=== PATIENT | male | born 1955 | race Caucasian/White ===

== ENCOUNTER 2023-09-14 04:06 | Emergency (ER) | payer OTHER ==
[2023-09-14 04:09] VITALS: TEMP 97.7
[2023-09-14] MEDS ORDERED: DUONEB 0.5-3 MG/3 ml Neb IH ONE (05:02)
[2023-09-14] MEDS: DUONEB 0.5-3 MG/3 ml Neb IH ONE (05:05)
[2023-09-14 05:13] LABS: Absolute Neutrophil Ct (ANC) 6.16 x10^3/uL (1.4-6.9); BASOPHIL % 0.5 % (0.0-0.4); Basophil (Absolute #) 0.04 x10^3/uL (0-0.4); Eosinophil % 1.2 % (0.00-5.0); Hemoglobin 13.2 g/dL (12.5-18.0); IMMATURE GRAN # 0.05 x10^3u/L (0.00-0.03); IMMATURE GRAN % 0.6 % (0.00-0.4); Lymphocyte (Absolute #) 1.55 x10^3/uL (1.0-4.6); Mean Cell Volume 91.1 fL (78-100); Mean Corpuscular Hemoglobin 30.1 pg (26-32); Mean Platelet Volume 10.1 fL (7.5-11.0); Monocyte (Absolute #) 0.71 x10^3/uL (0.0-1.3); Monocytes % 8.2 % (0.0-12.0); Neutrophil % 71.5 % (36.0-66.0); Platelet Count 303 x10^3/uL (150-450); Red Blood Count 4.39 x10^6/uL (4.1-5.6); Red Cell Distribution Width 12.3 % (11.5-14.0); White Blood Count 8.6 x10^3/uL (4.0-10.5)
--- NOTE | 2023-09-14 05:17 | ERPHSYRPT ---
- History of Present Illness Time Seen by Provider: 09/14/23 04:16 Source: patient, family Exam Limitations: no limitations Patient Subjective Stated Complaint: short of breath, headache, body aches, fatigue, cough, abd pain Triage Nursing Assessment: pt ambulated into ER without diff, at bedside. Pt alert and oriented x4, cooperative. Pt c/o shortness of breath which occured around 3am this morning when he got up for work. Pt has been fighting a cold for the last week. Lung marin clear ant bilat, lung marin coarse with rhonchi noted posteriorly on expiration. Pt c/o nausea but no vomiting. Pt has some mid sternal chest pain and abd pain which pt feels is from coughing. Heart tones reg. Abd soft with active bs x4 quad, tender on palpation. Pt c/o achines and fatigue all over and has a headache. Pt has a dry, non prod cough. Pt had several home meds on his list but informed me he isn't taking any of those anymore except for atorvastatin because he can't afford to have them filled. Physician History: 67 years old male presented to the ER with complains of cough congestion with progressive worsening for the last 2 weeks. Patient reported it started as a head cold with gradually going down in the lungs. Patient reports coughing up yellow sputum moderate in amount with subjective feeling of fever and chills. He has been using [id number] medications with no significant relief. Patient woke up this morning to go to work and was having hard time breathing and could not stop coughing. Denies any chest pain but soreness because of repeated coughing. Also reports aches and pains all over with a headache, some abdominal discomfort, body aches. Denies any recent known sick contact. Allergies/Adverse Reactions: cefaclor [From Ceclor] Allergy (Severe, Verified 09/14/23 04:22) Shortness of Breath fluoxetine HCl [From Prozac] Allergy (Mild, Verified 09/14/23 04:22) aggitated Home Medications: Atorvastatin Calcium 40 mg PO HS 09/14/23 [History] Hx Tetanus, Diphtheria Vaccination/Date Given: (unknown) Hx Influenza Vaccination/Date Given: No Hx Pneumococcal Vaccination/Date Given: No Immunizations Up to Date: No Travel Risk - International Travel Have you traveled outside of the country in past 3 weeks: No - Emerging Infectious Disease Are you exhibiting symptoms associated with any current EIDs: Yes Symptoms: Abdominal Pain, Cough: New Onset, Headaches/Body Aches/, Shortness of Breath - Review of Systems Constitutional: Fever, Chills, Fatigue, Weakness Eyes: No Symptoms Ears, Nose, & Throat: Nose Congestion, Throat Swelling Respiratory: Cough, Dyspnea, Wheezing Cardiac: Chest Pain Abdominal/Gastrointestinal: No Symptoms Genitourinary Symptoms: No Symptoms Musculoskeletal: Arthralgias, Myalgias Skin: No Symptoms Neurological: Headache Psychological: No Symptoms Endocrine: No Symptoms Hematologic/Lymphatic: No Symptoms Immunological/Allergic: No Symptoms - Past Medical History Pertinent Past Medical History: Yes Neurological History: Migraines, Peripheral Neuropathy, Seizures ENT History: No Pertinent History Cardiac History: High Cholesterol, Hypertension Respiratory History: Bronchitis, Sleep Apnea Endocrine Medical History: No Pertinent History Musculoskeletal History: Arthritis GI Medical History: No Pertinent History History: No Pertinent History Psycho-Social History: Depression Male Reproductive Disorders: No Pertinent History Other Medical History: syncopal episode - Past Surgical History Past Surgical History: Yes Neuro Surgical History: No Pertinent History Cardiac: No Pertinent History Respiratory: No Pertinent History Gastrointestinal: No Pertinent History Genitourinary: No Pertinent History Musculoskeletal: Orthopedic Surgery Male Surgical History: No Pertinent History Other Surgical History: SINUS SURGERY - Social History Smoking Status: Former smoker How long have you smoked: 25 years Exposure to second hand smoke: Yes Drug Use: none Patient Lives Alone: No - Nursing Vital Signs Nursing Vital Signs: Initial Vital Signs Blood Pressure 158/72 09/14/23 04:06 O2 Sat by Pulse Oximetry 98 09/14/23 04:06 Pain Scale Pain Intensity 5 - Physical Exam General Appearance: no apparent distress, alert Eye Exam: PERRL/EOMI Ears, Nose, Throat Exam: hearing grossly normal, nasal congestion, pharyngeal erythema Neck Exam: normal inspection, non-tender, supple, full range of motion Respiratory Exam: diminished breath sounds, rhonchi, wheezing, No respiratory distress Cardiovascular/Chest Exam: normal heart sounds, regular rate/rhythm Abdominal/Gastrointestinal Exam: soft, normal bowel sounds, No tenderness Extremity Exam: non-tender, normal range of motion Neurologic Exam: alert, oriented x 3, cooperative, stitchdown toe former II-XII nml as tested Skin Exam: normal color SpO2 Interpretation: normal SpO2: 96 O2 Delivery: Room Air - Course EKG Interpreted by Me: RATE ([id number]), Sinus Rhythm, NORMAL AXIS, NORMAL INTERVALS, NORMAL QRS Ordered Tests: Active Orders 24 hr Category Date Time Status CHEST 1 VIEW (PORTABLE) Stat Exams 09/14/23 05:08 Taken CHEST WITH CONTRAST [CT] Stat Exams 09/14/23 06:42 Ordered BLOOD CULTURE Stat Lab 09/14/23 06:04 Received CBC W DIFF Stat Lab 09/14/23 04:45 Completed CMP Stat Lab 09/14/23 04:45 Completed D-DIMER QUANTITATIVE Stat Lab 09/14/23 06:09 Completed Lactic Acid Stat Lab 09/14/23 05:42 Completed NT PRO BNPII Stat Lab 09/14/23 04:45 Completed TROPONIN Q4H Lab 09/14/23 04:45 Completed TROPONIN Q4H Lab 09/14/23 09:00 Ordered TROPONIN Q4H Lab 09/14/23 13:00 Ordered UA W/RFX UR CULTURE Stat Lab 09/14/23 04:52 Ordered Respiratory Therapy Assessment DAILY RT 09/14/23 05:03 Active Medication Summary Discontinued Medications Generic Name Dose Route Start Last Admin Trade Name Freq PRN Reason Stop Dose Admin Acetaminophen 975 mg 09/14/23 05:49 09/14/23 05:55 Acetaminophen 325 Mg Tablet PO 09/14/23 05:50 975 mg STAT STA Administration Acetaminophen Confirm 09/14/23 05:53 Acetaminophen 325 Mg Tablet Administered 09/14/23 05:54 Dose 975 mg .ROUTE .STK-MED ONE Albuterol/Ipratropium 3 ml 09/14/23 04:52 09/14/23 05:05 Ipratropium/Albuterol Sulfate 3 Ml Ampul.Neb IH 09/14/23 04:53 3 ml STAT ONE Administration Albuterol/Ipratropium Confirm 09/14/23 05:02 Ipratropium/Albuterol Sulfate 3 Ml Ampul.Neb Administered 09/14/23 05:03 Dose 3 ml IH .STK-MED ONE Levofloxacin 500 mg 09/14/23 06:26 Levofloxacin 250 Mg Tab PO 09/14/23 06:27 STAT ONE Lab/Rad Data: Laboratory Result Diagrams 09/14/23 04:45 09/14/23 04:45 Laboratory Results 09/14/23 09/14/23 09/14/23 Range/Units 06:09 05:42 05:09 WBC (4.0-10.5) x10^3/uL RBC (4.1-5.6) x10^6/uL Hgb (12.5-18.0) g/dL Hct (42-50) % MCV (78-100) fL MCH (26-32) pg MCHC (32-36) g/dL RDW (11.5-14.0) % Plt Count (150-450) x10^3/uL MPV (7.5-11.0) fL Gran % (36.0-66.0) % Immature Gran % (Auto) (0.00-0.4) % Nucleat RBC Rel Count (0.00-0.1) % Eos # (Auto) (0-0.5) x10^3/uL Immature Gran # (Auto) (0.00-0.03) x10^3u/L Absolute Lymphs (auto) (1.0-4.6) x10^3/uL Absolute Monos (auto) (0.0-1.3) x10^3/uL Absolute Nucleated RBC (0.00-0.01) x10^3u/L Lymphocytes % (24.0-44.0) % Monocytes % (0.0-12.0) % Eosinophils % (0.00-5.0) % Basophils % (0.0-0.4) % Absolute Granulocytes (1.4-6.9) x10^3/uL Basophils # (0-0.4) x10^3/uL D-Dimer 0.87 H* (0.0-0.50) mg/L Sodium (135-145) mmol/L Potassium (3.5-5.1) mmol/L Chloride (98-107) mmol/L Carbon Dioxide (22-30) mmol/L Anion Gap (5-15) MEQ/L BUN (9-20) mg/dL Creatinine (0.66-1.25) mg/dL Estimated GFR ML/MIN Glucose (74-106) mg/dL Lactic Acid 1.1 (0.4-2.0) Calcium (8.4-10.2) mg/dL Total Bilirubin (0.2-1.3) mg/dL AST (17-59) U/L ALT (0-50) U/L Alkaline Phosphatase (38-126) U/L Troponin I (0.000-0.034) ng/mL NT-Pro-B Natriuret Pep (<300) pg/mL Serum Total Protein (6.3-8.2) g/dL Albumin (3.5-5.0) g/dL Influenza Type A Ag NEGATIVE (NEGATIVE) Influenza Type B Ag NEGATIVE (NEGATIVE) RSV (PCR) NEGATIVE (NEGATIVE) SARS-CoV-2 (PCR) NEGATIVE (NEGATIVE) 09/14/23 09/14/23 09/14/23 Range/Units 04:45 04:45 04:45 WBC 8.6 (4.0-10.5) x10^3/uL RBC 4.39 (4.1-5.6) x10^6/uL Hgb 13.2 (12.5-18.0) g/dL Hct 40.0 L (42-50) % MCV 91.1 (78-100) fL MCH 30.1 (26-32) pg MCHC 33.0 (32-36) g/dL RDW 12.3 (11.5-14.0) % Plt Count 303 (150-450) x10^3/uL MPV 10.1 (7.5-11.0) fL Gran % 71.5 H (36.0-66.0) % Immature Gran % (Auto) 0.6 H (0.00-0.4) % Nucleat RBC Rel Count 0.0 (0.00-0.1) % Eos # (Auto) 0.10 (0-0.5) x10^3/uL Immature Gran # (Auto) 0.05 H (0.00-0.03) x10^3u/L Absolute Lymphs (auto) 1.55 (1.0-4.6) x10^3/uL Absolute Monos (auto) 0.71 (0.0-1.3) x10^3/uL Absolute Nucleated RBC 0.00 (0.00-0.01) x10^3u/L Lymphocytes % 18.0 L (24.0-44.0) % Monocytes % 8.2 (0.0-12.0) % Eosinophils % 1.2 (0.00-5.0) % Basophils % 0.5 (0.0-0.4) % Absolute Granulocytes 6.16 (1.4-6.9) x10^3/uL Basophils # 0.04 (0-0.4) x10^3/uL D-Dimer (0.0-0.50) mg/L Sodium 139 (135-145) mmol/L Potassium 3.7 (3.5-5.1) mmol/L Chloride 109 H (98-107) mmol/L Carbon Dioxide 19 L (22-30) mmol/L Anion Gap 13.5 (5-15) MEQ/L BUN 14 (9-20) mg/dL Creatinine 1.04 (0.66-1.25) mg/dL Estimated GFR 79.2 ML/MIN Glucose 114 H (74-106) mg/dL Lactic Acid (0.4-2.0) Calcium 9.4 (8.4-10.2) mg/dL Total Bilirubin 0.20 (0.2-1.3) mg/dL AST 49 (17-59) U/L ALT 56 H (0-50) U/L Alkaline Phosphatase 78 (38-126) U/L Troponin I < 0.012 (0.000-0.034) ng/mL NT-Pro-B Natriuret Pep 115 (<300) pg/mL Serum Total Protein 6.8 (6.3-8.2) g/dL Albumin 3.6 (3.5-5.0) g/dL Influenza Type A Ag (NEGATIVE) Influenza Type B Ag (NEGATIVE) RSV (PCR) (NEGATIVE) SARS-CoV-2 (PCR) (NEGATIVE) - Progress Progress: improved Air Movement: good Progress Note: 09/14/23 06:41 feeling better after neb, x rays consistent with airspace disease, started on levaquin, D-dimers are elevated, CTA is pending, care is transferred to Dr. Baldwin at shift change. Blood Culture(s) Obtained: Yes Antibiotics given: Yes Counseled pt/family regarding: lab results, diagnosis, need for follow-up, rad results Medical Desision Making - Independent Historian Additional History obtained from: Spouse - Diagnostic Testing Diagnostic test were ordered, analyzed, and reviewed by me: Yes Radiological Interpretation: Interpreted by me, Reviewed by me - Risk of complications The pt has a mod risk of morbidity or mortality based on: Need for prescription drug management - Departure Clinical Impression: Pneumonia Condition: Stable Critical Care Time: No Referrals: JARED HAMMOND, TORI [Primary Care Provider] - Follow up with PCP 1 day Instructions: Pneumonia, Adult (DC) Additional Instructions: Take neb treatments every 6 hourly. Tylenol as needed for fever greater than 100.4. Follow-up with primary care for reevaluation in 1 to 2 days. Return to ER for worsening cough/difficulty breathing or if having chest pain palpitations etc. Prescriptions: Albuterol/Ipratropium 3ml Neb* [DUONEB 0.5-3 MG/3 ml Neb] 3 ml IH Q4-6HPRN PRN 10 Days #60 amp PRN Reason: Shortness Of Breath/Wheezing Levofloxacin [Levaquin 500 MG Tablet] 500 mg PO DAILY #10 tablet
[2023-09-14 05:37] LABS: ALBUMIN 3.6 g/dL (3.5-5.0); ANION GAP 13.5 MEQ/L (5-15); BILIRUBIN,TOTAL 0.2 mg/dL (0.2-1.3); Calcium 9.4 mg/dL (8.4-10.2); Creatinine 1 1.04 mg/dL (0.66-1.25); EST GLOMERULAR FILTRATION RATE 79.2 ML/MIN; Potassium 3.7 mmol/L (3.5-5.1); Total Protein 6.8 g/dL (6.3-8.2)
[2023-09-14] MEDS ORDERED: TYLENOL 325 MG ONE (05:53)
[2023-09-14] MEDS: TYLENOL 325 MG PO STA (05:55)
[2023-09-14 05:56] LABS: INFLUENZA A NEGATIVE (NEGATIVE); INFLUENZA B NEGATIVE (NEGATIVE); RESPIRATORY SYNCTIAL VIRUS NEGATIVE (NEGATIVE); SARS-CoV-2 Xpert Express NEGATIVE (NEGATIVE)
[2023-09-14] MEDS ORDERED: LEVOFLOXACIN 750MG/150ML D5W 750 MG/150 ML BAG IV ONE (06:50)
[2023-09-14] MEDS: LEVOFLOXACIN 750MG/150ML D5W 750 MG/150 ML BAG IV STA (06:53)
[2023-09-14] MEDS: Levofloxacin 250MG Tablet PO ONE (07:52)
[2023-09-14 08:40] LABS: Appearance Clear (Clear); Bilirubin Negative (Negative); Blood Trace (Negative); Glucose, Urine Negative (Negative); Ketones 15 (Negative); Leukocyte Esterase Negative (Negative); Nitrite Negative (Negative); Ph 6.5 (4.6-8.0); Protein,Urine Dip Negative (Negative); Specific Gravity >=1.030 (1.005-1.030); Urobilinogen 0.2 mg/dL (0.2)
[2023-09-14 08:45] LABS: Bacteria Rare /HPF (None Seen); Epithelial Cells Few /HPF (None Seen); RBC 0-2 /HPF (0-5); WBC 0-2 /HPF (0-5)
[2023-09-14 08:46] LABS: ADD URINE CULTURE? NO (NO)
--- NOTE | 2023-09-14 09:16 | XRAY ---
Indication: Short of breath. Cough. Pulmonary embolus. Multiple contiguous axial images obtained through the chest using 80 cc Isovue 370 contrast. Comparison: None Good opacification of the pulmonary arteries to include the lobar and segmental branches. No pulmonary embolus. Heart not enlarged. Aorta mildly arteriosclerotic without aneurysm/dissection. Small subcarinal lymph nodes. No pathologic adenopathy. Lungs demonstrates patchy left lower lobe airspace disease without effusion. Remaining lungs demonstrates minimal bilateral dependent atelectasis. Bony thorax intact with osteopenia and mild degenerative changes throughout the spine. Limited upper abdomen demonstrates 3 cm splenic cyst. Impression: 1. Negative pulmonary 2. Left lower lobe pneumonia. 3. Chronic findings arteriosclerotic disease, splenic cyst, and chronic bony findings.
--- NOTE | 2023-09-14 09:25 | XRAY ---
Indication: Short of breath. Comparison: March 01, 2015 Portable chest again hyperinflated with new mild left base infiltrate/atelectasis. Remaining heart and right lung unremarkable. Bony thorax intact again with osteopenia and degenerative changes.
[2023-09-14 09:41] VITALS: BP 166/79; PULSE 76; RESP 19; O2SAT 96
== END 2023-09-14 09:41 | disposition home or self-care (01) ==
LOC: ED 04:06
DX: J18.9 Pneumonia, unspecified organism (principal); R05.2 Subacute cough; M79.10 Myalgia, unspecified site; R51.9 Headache, unspecified; E78.5 Hyperlipidemia, unspecified; I10 Essential (primary) hypertension; Z79.899 Other long term (current) drug therapy; Z20.828 Contact with and (suspected) exposure to other viral communicable diseases
CPT/HCPCS: 0241U; 36000; 36415; 71045; 71260; 80053; 81001; 83605; 83880; 84484; 85025; 85379; 87040; 93005; 93041; 94640; 94760; 99284; J1956; A9270-GY

== ENCOUNTER 2023-09-27 16:03 | Emergency (ER) | payer OTHER ==
[2023-09-27 16:17] VITALS: TEMP 97.2
--- NOTE | 2023-09-27 16:57 | ERPHSYRPT ---
- History of Present Illness Time Seen by Provider: 09/27/23 16:30 Source: patient Exam Limitations: no limitations Patient Subjective Stated Complaint: C/O headache and numbness of all fingers that began around 3pm today. Denies falls or head injuries. Triage Nursing Assessment: Patient ambulated back to ER. He is alert and oriented. Skin tone normal. No SOB. No cough. CHANTEL ABRAHAM. Physician History: This is a 67-year-old white male patient of nurse practitioner Ismael who was seen in our emergency department 2 to 3 weeks ago secondary to clinical impression of pneumonia. Patient seems to be improving. Today he woke up and was having some flulike symptoms and therefore he took a new medication which was called "Daugherty's complete" which is a liquid preparation containing menthol, camphor, guaifenesin and acetaminophen. He was told by an individual that this medication works to help in cough cold and flulike symptom relief. He took that medication approximately 3 PM and within an hour he started having numbness in his hands which have now completely resolved, headache and just overall body aches. He has never had this medication before. Patient does have a history of hyperlipidemia, hypertension, diabetes, recurrent bronchitis, migraine headaches and peripheral neuropathy. Patient has not had a fever. He denies chest pain. He denies shortness of breath. Timing/Duration: today Severity: mild (Moderate) Associated Symptoms: weakness (Body aches), other (Headache), No nausea, No vomiting, No abdominal pain, No shortness of breath, No chest pain Allergies/Adverse Reactions: cefaclor [From Ceclor] Allergy (Severe, Verified 09/27/23 16:11) Shortness of Breath fluoxetine HCl [From Prozac] Allergy (Mild, Verified 09/27/23 16:11) aggitated Home Medications: Atorvastatin Calcium 40 mg PO HS 09/14/23 [History] Amitriptyline HCl 10 mg [Elavil 10 mg] 10 mg PO TID 09/27/23 [History] Gabapentin [Neurontin ] 300 mg PO TID 09/27/23 [History] Lisinopril 20 mg [Zestril 20 MG] 20 mg PO DAILY 09/27/23 [History] Metformin HCl 500 mg [Glucophage 500 MG] 500 mg PO BID 09/27/23 [History] Hx Tetanus, Diphtheria Vaccination/Date Given: Yes Hx Influenza Vaccination/Date Given: No Hx Pneumococcal Vaccination/Date Given: No Immunizations Up to Date: Yes Travel Risk - International Travel Have you traveled outside of the country in past 3 weeks: No - Emerging Infectious Disease Are you exhibiting symptoms associated with any current EIDs: Yes Symptoms: Headaches/Body Aches/ - Review of Systems Constitutional: Weakness Eyes: No Symptoms Ears, Nose, & Throat: No Symptoms Respiratory: No Symptoms Cardiac: No Symptoms Abdominal/Gastrointestinal: No Symptoms Genitourinary Symptoms: No Symptoms Musculoskeletal: Arthralgias, Myalgias Skin: No Symptoms Neurological: Headache, Other (Hand numbness bilaterally which has now completely resolved at the time of this examination) Psychological: No Symptoms Endocrine: No Symptoms Hematologic/Lymphatic: No Symptoms Immunological/Allergic: No Symptoms All Other Systems: Reviewed and Negative - Past Medical History Pertinent Past Medical History: Yes Neurological History: Migraines, Peripheral Neuropathy, Seizures ENT History: No Pertinent History Cardiac History: High Cholesterol, Hypertension Respiratory History: Bronchitis, Sleep Apnea Endocrine Medical History: Diabetes Type II Musculoskeletal History: Arthritis, Fractures GI Medical History: No Pertinent History History: No Pertinent History Psycho-Social History: Depression Male Reproductive Disorders: No Pertinent History Other Medical History: syncopal episode - Past Surgical History Past Surgical History: Yes Neuro Surgical History: No Pertinent History Cardiac: No Pertinent History Respiratory: No Pertinent History Gastrointestinal: No Pertinent History Genitourinary: No Pertinent History Musculoskeletal: Orthopedic Surgery Male Surgical History: No Pertinent History Other Surgical History: SINUS SURGERY, broken arm - Social History Smoking Status: Former smoker How long have you smoked: 25 years Exposure to second hand smoke: Yes Drug Use: none Patient Lives Alone: No - Nursing Vital Signs Nursing Vital Signs: Initial Vital Signs Temperature 97.2 F 09/27/23 16:04 Pulse Rate 79 09/27/23 16:04 Respiratory Rate 19 09/27/23 16:04 Blood Pressure 162/79 09/27/23 16:04 O2 Sat by Pulse Oximetry 98 09/27/23 16:04 Pain Scale Pain Intensity 7 - Physical Exam General Appearance: no apparent distress, alert, anxiety Eye Exam: PERRL/EOMI, eyes nml inspection Ears, Nose, Throat Exam: normal ENT inspection, moist mucous membranes Neck Exam: normal inspection, non-tender, supple, full range of motion Respiratory Exam: normal breath sounds, lungs clear, airway intact, No chest tenderness, No respiratory distress Cardiovascular Exam: regular rate/rhythm, normal heart sounds, normal peripheral pulses Gastrointestinal/Abdomen Exam: soft, normal bowel sounds, No tenderness Rectal Exam: not done Back Exam: normal inspection, normal range of motion, No CVA tenderness Extremity Exam: normal inspection, normal range of motion, pelvis stable Neurologic Exam: alert, oriented x 3, cooperative, news anchor II-XII nml as tested, normal mood/affect, nml cerebellar function, nml station & gait, sensation nml Skin Exam: normal color, warm, dry Lymphatic Exam: No adenopathy SpO2 Interpretation: normal SpO2: 98 O2 Delivery: Room Air - Course Nursing assessment & vital signs reviewed: Yes EKG Interpreted by Me: RATE (80), Sinus Rhythm, NORMAL AXIS, NORMAL INTERVALS, NORMAL QRS, NORMAL ST-T, Other (No acute ischemic changes on today's twelve-lead EKG.) Ordered Tests: Active Orders 24 hr Category Date Time Status Television Camera Operator STAT Care 09/27/23 16:58 Active EKG-ER Only STAT Care 09/27/23 16:57 Active IV Insertion STAT Care 09/27/23 16:57 Active Pulse Oximetry (ED) STAT Care 09/27/23 16:57 Active BLOOD CULTURE Stat Lab 09/27/23 17:18 Received CBC W DIFF Stat Lab 09/27/23 17:10 Completed CMP Stat Lab 09/27/23 17:10 Completed MONO SCREEN Stat Lab 09/27/23 17:18 Completed UA W/RFX UR CULTURE Stat Lab 09/27/23 18:13 Completed Medication Summary Discontinued Medications Generic Name Dose Route Start Last Admin Trade Name Freq PRN Reason Stop Dose Admin Sodium Chloride 1,000 mls @ 999 mls/hr 09/27/23 16:57 09/27/23 18:15 Sodium Chloride 0.9% 1000 Ml IV 09/27/23 17:57 Infused .Q1H1M STA Infusion Sodium Chloride Confirm 09/27/23 17:05 Sodium Chloride 0.9% 1000 Ml Administered 09/27/23 17:06 Dose 1,000 mls @ ud .ROUTE .K-MED ONE Lab/Rad Data: Laboratory Result Diagrams 09/27/23 17:10 09/27/23 17:10 Laboratory Results 09/27/23 09/27/23 09/27/23 Range/Units 18:13 17:18 17:15 WBC (4.0-10.5) x10^3/uL RBC (4.1-5.6) x10^6/uL Hgb (12.5-18.0) g/dL Hct (42-50) % MCV (78-100) fL MCH (26-32) pg MCHC (32-36) g/dL RDW (11.5-14.0) % Plt Count (150-450) x10^3/uL MPV (7.5-11.0) fL Gran % (36.0-66.0) % Immature Gran % (Auto) (0.00-0.4) % Nucleat RBC Rel Count (0.00-0.1) % Eos # (Auto) (0-0.5) x10^3/uL Immature Gran # (Auto) (0.00-0.03) x10^3u/L Absolute Lymphs (auto) (1.0-4.6) x10^3/uL Absolute Monos (auto) (0.0-1.3) x10^3/uL Absolute Nucleated RBC (0.00-0.01) x10^3u/L Lymphocytes % (24.0-44.0) % Monocytes % (0.0-12.0) % Eosinophils % (0.00-5.0) % Basophils % (0.0-0.4) % Absolute Granulocytes (1.4-6.9) x10^3/uL Basophils # (0-0.4) x10^3/uL Sodium (135-145) mmol/L Potassium (3.5-5.1) mmol/L Chloride (98-107) mmol/L Carbon Dioxide (22-30) mmol/L Anion Gap (5-15) MEQ/L BUN (9-20) mg/dL Creatinine (0.66-1.25) mg/dL Estimated GFR ML/MIN Glucose (74-106) mg/dL Calcium (8.4-10.2) mg/dL Total Bilirubin (0.2-1.3) mg/dL AST (17-59) U/L ALT (0-50) U/L Alkaline Phosphatase (38-126) U/L Serum Total Protein (6.3-8.2) g/dL Albumin (3.5-5.0) g/dL Urine Color Yellow (Yellow) Urine Appearance Clear (Clear) Urine pH 6.0 (4.6-8.0) Ur Specific [place] <=1.005 (1.005-1.030) Urine Protein Negative (Negative) Urine Glucose (UA) Negative (Negative) mg/dL Urine Ketones Negative (Negative) Urine Blood Negative (Negative) Urine Nitrite Negative (Negative) Urine Bilirubin Negative (Negative) Urine Urobilinogen 0.2 (0.2) mg/dL Ur Leukocyte Esterase Negative (Negative) U Hyaline Cast (Auto) NONE SEEN (0-2) /LPF Urine Microscopic RBC 0-2 (0-5) /HPF Urine Microscopic WBC 0-2 (0-5) /HPF Ur Epithelial Cells None Seen (None Seen) /HPF Urine Bacteria None Seen (None Seen) /HPF Urine Culture Reflexed NO (NO) Monoscreen NEGATIVE (NEGATIVE) Influenza Type A Ag NEGATIVE (NEGATIVE) Influenza Type B Ag NEGATIVE (NEGATIVE) RSV (PCR) NEGATIVE (NEGATIVE) SARS-CoV-2 (PCR) NEGATIVE (NEGATIVE) Group A Strep Antibody (NEGATIVE) 09/27/23 09/27/23 09/27/23 Range/Units 17:15 17:10 17:10 WBC 8.4 (4.0-10.5) x10^3/uL RBC 4.40 (4.1-5.6) x10^6/uL Hgb 12.9 (12.5-18.0) g/dL Hct 39.4 L (42-50) % MCV 89.5 (78-100) fL MCH 29.3 (26-32) pg MCHC 32.7 (32-36) g/dL RDW 12.5 (11.5-14.0) % Plt Count 266 (150-450) x10^3/uL MPV 9.9 (7.5-11.0) fL Gran % 74.0 H (36.0-66.0) % Immature Gran % (Auto) 0.5 H (0.00-0.4) % Nucleat RBC Rel Count 0.0 (0.00-0.1) % Eos # (Auto) 0.09 (0-0.5) x10^3/uL Immature Gran # (Auto) 0.04 H (0.00-0.03) x10^3u/L Absolute Lymphs (auto) 1.53 (1.0-4.6) x10^3/uL Absolute Monos (auto) 0.49 (0.0-1.3) x10^3/uL Absolute Nucleated RBC 0.00 (0.00-0.01) x10^3u/L Lymphocytes % 18.1 L (24.0-44.0) % Monocytes % 5.8 (0.0-12.0) % Eosinophils % 1.1 (0.00-5.0) % Basophils % 0.5 (0.0-0.4) % Absolute Granulocytes 6.24 (1.4-6.9) x10^3/uL Basophils # 0.04 (0-0.4) x10^3/uL Sodium 130 L (135-145) mmol/L Potassium 4.8 (3.5-5.1) mmol/L Chloride 100 (98-107) mmol/L Carbon Dioxide 22 (22-30) mmol/L Anion Gap 12.8 (5-15) MEQ/L BUN 24 H (9-20) mg/dL Creatinine 1.23 (0.66-1.25) mg/dL Estimated GFR 64.8 ML/MIN Glucose 84 (74-106) mg/dL Calcium 9.8 (8.4-10.2) mg/dL Total Bilirubin 0.40 (0.2-1.3) mg/dL AST 43 (17-59) U/L ALT 43 (0-50) U/L Alkaline Phosphatase 68 (38-126) U/L Serum Total Protein 7.4 (6.3-8.2) g/dL Albumin 4.2 (3.5-5.0) g/dL Urine Color (Yellow) Urine Appearance (Clear) Urine pH (4.6-8.0) Ur Specific [place] (1.005-1.030) Urine Protein (Negative) Urine Glucose (UA) (Negative) mg/dL Urine Ketones (Negative) Urine Blood (Negative) Urine Nitrite (Negative) Urine Bilirubin (Negative) Urine Urobilinogen (0.2) mg/dL Ur Leukocyte Esterase (Negative) U Hyaline Cast (Auto) (0-2) /LPF Urine Microscopic RBC (0-5) /HPF Urine Microscopic WBC (0-5) /HPF Ur Epithelial Cells (None Seen) /HPF Urine Bacteria (None Seen) /HPF Urine Culture Reflexed (NO) Monoscreen (NEGATIVE) Influenza Type A Ag (NEGATIVE) Influenza Type B Ag (NEGATIVE) RSV (PCR) (NEGATIVE) SARS-CoV-2 (PCR) (NEGATIVE) Group A Strep Antibody NOT DETECTED (NEGATIVE) - Progress Progress: improved, re-examined Progress Note: 09/27/23 17:49 My medical decision making and the assignment of a moderate level of complexity of this patient's medical condition is based on review of the patient's past medical history, review the patient's medication list, review of patient drug allergy list, review of the new medications adverse reactions and drug interactions, history present illness and physical findings on examination. The workup in this patient includes placement of intravenous IV line, intravenous normal saline, CBC, CMP, twelve-lead EKG, magnesium level, troponin level, urinalysis, monotest, COVID, influenza A and RSV test. Differential diagnosis includes medication side effect, medication drug interaction, electrolyte abnormalities, viral illness, dehydration, urinary tract infection cardiac rhythm abnormality. 09/27/23 18:35 I interpreted the patient's laboratory data results. Patient has no acute, emergent medical issue at this time. Patient is a mildly low sodium level. I think the patient's symptoms are secondary to medication side effects. Counseled pt/family regarding: lab results, diagnosis, need for follow-up Medical Desision Making - Independent Historian Additional History obtained from: Spouse - Diagnostic Testing Diagnostic test were ordered, analyzed, and reviewed by me: Yes - Risk of complications Low Risk: Low risk of morbidity from additional dx testing or treatment - Departure Departure Disposition: Home Clinical Impression: Hyponatremia, Medication side effect Condition: Stable Critical Care Time: No Referrals: JARED HAMMOND NP [Primary Care Provider] - Follow up/PCP as directed Additional Instructions: Drink plenty of clear liquids. Discontinue Daugherty's complete medication. Use Tylenol and ibuprofen for aches and pain symptoms. Follow-up with your primary care provider tomorrow, 09/28/2023 to make arrangements for follow-up appointment for further evaluation and management within the next 3 to 5 days.
[2023-09-27] MEDS ORDERED: Sodium Chloride 0.9% 1000 ML 1,000 ML ONE (17:05)
[2023-09-27] MEDS: Sodium Chloride 0.9% 1000 ML 1,000 ML IV STA (17:06)
[2023-09-27 17:28] LABS: Absolute Neutrophil Ct (ANC) 6.24 x10^3/uL (1.4-6.9); BASOPHIL % 0.5 % (0.0-0.4); Basophil (Absolute #) 0.04 x10^3/uL (0-0.4); Eosinophil % 1.1 % (0.00-5.0); Eosinophil (Absolute #) 0.09 x10^3/uL (0-0.5); Hematocrit 39.4 % (42-50); Hemoglobin 12.9 g/dL (12.5-18.0); IMMATURE GRAN # 0.04 x10^3u/L (0.00-0.03); IMMATURE GRAN % 0.5 % (0.00-0.4); Lymphocyte (Absolute #) 1.53 x10^3/uL (1.0-4.6); Lymphocytes % 18.1 % (24.0-44.0); Mean Cell Volume 89.5 fL (78-100); Mean Corpuscular Hemoglobin 29.3 pg (26-32); Mean Corpuscular Hgb Concent. 32.7 g/dL (32-36); Mean Platelet Volume 9.9 fL (7.5-11.0); Monocyte (Absolute #) 0.49 x10^3/uL (0.0-1.3); Monocytes % 5.8 % (0.0-12.0); Platelet Count 266 x10^3/uL (150-450); Red Cell Distribution Width 12.5 % (11.5-14.0); White Blood Count 8.4 x10^3/uL (4.0-10.5)
[2023-09-27 17:49] LABS: ALBUMIN 4.2 g/dL (3.5-5.0); ANION GAP 12.8 MEQ/L (5-15); BILIRUBIN,TOTAL 0.4 mg/dL (0.2-1.3); Calcium 9.8 mg/dL (8.4-10.2); Creatinine 1 1.23 mg/dL (0.66-1.25); EST GLOMERULAR FILTRATION RATE 64.8 ML/MIN; Potassium 4.8 mmol/L (3.5-5.1); Total Protein 7.4 g/dL (6.3-8.2)
[2023-09-27 18:07] LABS: INFLUENZA A NEGATIVE (NEGATIVE); INFLUENZA B NEGATIVE (NEGATIVE); RESPIRATORY SYNCTIAL VIRUS NEGATIVE (NEGATIVE); SARS-CoV-2 Xpert Express NEGATIVE (NEGATIVE)
[2023-09-27 18:23] LABS: ADD URINE CULTURE? NO (NO); Appearance Clear (Clear); Bacteria None Seen /HPF (None Seen); Bilirubin Negative (Negative); Blood Negative (Negative); Epithelial Cells None Seen /HPF (None Seen); Glucose, Urine Negative (Negative); Hyaline Casts NONE SEEN /LPF (0-2); Ketones Negative (Negative); Leukocyte Esterase Negative (Negative); Nitrite Negative (Negative); Protein,Urine Dip Negative (Negative); RBC 0-2 /HPF (0-5); Specific Gravity <=1.005 (1.005-1.030); Urobilinogen 0.2 mg/dL (0.2); WBC 0-2 /HPF (0-5)
[2023-09-27 18:24] VITALS: BP 134/72; PULSE 74; RESP 18
[2023-09-27 18:38] VITALS: O2SAT 98
== END 2023-09-27 18:50 | disposition home or self-care (01) ==
LOC: ED 16:03
DX: E87.1 Hypo-osmolality and hyponatremia (principal); T50.995A Adverse effect of other drugs, medicaments and biological substances, initial encounter; R20.2 Paresthesia of skin; R51.9 Headache, unspecified; M79.10 Myalgia, unspecified site; E78.5 Hyperlipidemia, unspecified; I10 Essential (primary) hypertension; E11.42 Type 2 diabetes mellitus with diabetic polyneuropathy; Z79.84 Long term (current) use of oral hypoglycemic drugs; Z79.899 Other long term (current) drug therapy
CPT/HCPCS: 0241U; 36000; 36415; 80053; 81001; 85025; 86308; 87040; 87651; 93005; 93041; 94760; 99284

== ENCOUNTER 2025-03-16 14:04 | Emergency (ER) | payer OTHER ==
--- NOTE | 2025-03-16 14:19 | ERPHSYRPT ---
- History of Present Illness Time Seen by Provider: 03/16/25 14:19 Source: patient, family Exam Limitations: no limitations Physician History: This is a 69-year-old white male patient of Dr. Dhillon and nurse practitioner Jaspal. Patient woke up this morning with an episode of dizziness. During the episode the did manage to obtain his systolic blood pressure which read is at 110. There is been some issues with his blood pressure readings as of recent days. Prior to him having a pacemaker placed 8 weeks ago, patient had several episodes of syncope. Since the pacemaker was placed 8 weeks ago, he has had 1 episode and it was mild. Today is only dizziness without syncope. Patient has been given a prescription for Antivert. He took an Antivert pill this warning during the episode and it did not seem to help per his report. Patient denies chest pain. Patient denies shortness of breath. He did not fall or hit his head or injure himself. Patient has a history of diabetes, hypertension and hyperlipidemia. His systolic blood pressure readings while I was interviewing him was 127 mmHg and 135 mmHg. Timing/Duration: today Severity: mild Character of Deficits: none Deficits: no difficulties Baseline/Normal Cognition: alert oriented x 3 Current Cognition: alert oriented x 3 Baseline Gait: walks w/o assistance Associated Symptoms: denies symptoms Allergies/Adverse Reactions: cefaclor [From Ceclor] Allergy (Severe, Verified 03/16/25 14:18) Shortness of Breath fluoxetine HCl [From Prozac] Allergy (Mild, Verified 03/16/25 14:18) aggitated Home Medications: Atorvastatin Calcium 40 mg PO HS 09/14/23 [History] Amitriptyline HCl 10 mg [Elavil 10 mg] 10 mg PO TID 09/27/23 [History] Gabapentin [Neurontin ] 300 mg PO TID 09/27/23 [History] Lisinopril 20 mg [Zestril 20 MG] 20 mg PO DAILY 09/27/23 [History] Metformin HCl 500 mg [Glucophage 500 MG] 500 mg PO BID 09/27/23 [History] Hx Tetanus, Diphtheria Vaccination/Date Given: Yes Hx Influenza Vaccination/Date Given: No Hx Pneumococcal Vaccination/Date Given: No Travel Risk - International Travel Have you traveled outside of the country in past 3 weeks: No - Emerging Infectious Disease Are you exhibiting symptoms associated with any current EIDs: Yes Symptoms: Headaches/Body Aches/ - Review of Systems Constitutional: No Symptoms Eyes: No Symptoms Ears, Nose, & Throat: No Symptoms Respiratory: No Symptoms Cardiac: No Symptoms Abdominal/Gastrointestinal: No Symptoms Genitourinary Symptoms: No Symptoms Musculoskeletal: No Symptoms Neurological: Dizziness Psychological: No Symptoms Endocrine: No Symptoms Hematologic/Lymphatic: No Symptoms Immunological/Allergic: No Symptoms All Other Systems: Reviewed and Negative - Past Medical History Pertinent Past Medical History: Yes Neurological History: Migraines, Peripheral Neuropathy, Seizures ENT History: No Pertinent History Cardiac History: High Cholesterol, Hypertension Respiratory History: Bronchitis, Sleep Apnea Endocrine Medical History: Diabetes Type II Musculoskeletal History: Arthritis, Fractures GI Medical History: No Pertinent History History: No Pertinent History Psycho-Social History: Depression Male Reproductive Disorders: No Pertinent History Other Medical History: syncopal episode - Past Surgical History Past Surgical History: Yes Neuro Surgical History: No Pertinent History Cardiac: No Pertinent History Respiratory: No Pertinent History Gastrointestinal: No Pertinent History Genitourinary: No Pertinent History Musculoskeletal: Orthopedic Surgery Male Surgical History: No Pertinent History Other Surgical History: SINUS SURGERY, broken arm - Social History Smoking Status: Former smoker How long have you smoked: 25 years Exposure to second hand smoke: Yes Drug Use: none Patient Lives Alone: No - Social Determinants of Health Will the patient participate in the screening: Yes Do you worry about a steady place to live?: No In the past 12 months,have you had to go without utilities?: No Transportation Issues: No Has anyone in your support network made you feel unsafe?: No Have you or anyone in your house had to go w/o enough food: No - Nursing Vital Signs Nursing Vital Signs: Initial Vital Signs Temperature 97.2 F 03/16/25 14:23 Pulse Rate 88 03/16/25 14:23 Respiratory Rate 22 03/16/25 14:23 Blood Pressure 153/72 03/16/25 14:23 O2 Sat by Pulse Oximetry 98 03/16/25 14:23 Pain Scale Pain Intensity 8 - Meghan Coma Scale Best Eye Response (Meghan): (4) open spontaneously Best Verbal Response (Meghan): (5) oriented Best Motor Response (Meghan): (6) obeys commands Deane Total: 15 - Physical Exam General Appearance: no apparent distress, alert, anxiety Eye Exam: bilateral eye: normal inspection, PERRL, EOMI Ears, Nose, Throat Exam: normal ENT inspection, TMs normal, moist mucous membranes Neck Exam: normal inspection, non-tender, supple, full range of motion Respiratory: normal breath sounds, lungs clear, airway intact, No chest tenderness, No respiratory distress Cardiovascular: regular rate/rhythm, normal heart sounds, normal peripheral pulses Gastrointestinal: soft, normal bowel sounds, No tenderness Rectal Exam: not done Back Exam: normal inspection, normal range of motion, No CVA tenderness, No vertebral tenderness Extremity Exam: normal inspection, normal range of motion, pelvis stable Mental Status: alert, oriented x 3, cooperative investigative analyst Exam: normal hearing, normal speech, PERRL Coordination/Gait: normal finger to nose, normal gait, normal cerebellar function Skin Exam: normal color, warm, dry SpO2 Interpretation: normal O2 Delivery: Room Air - Course Nursing assessment & vital signs reviewed: Yes EKG Interpreted by Me: RATE (78), Sinus Rhythm, NORMAL AXIS, NORMAL INTERVALS, NORMAL QRS, Other (QTc is 382. No acute ischemia on today's twelve-lead EKG.) Ordered Tests: Active Orders 24 hr Category Date Time Status EKG-ER Only STAT Care 03/16/25 15:06 Active IV Insertion STAT Care 03/16/25 15:06 Active POCT Glucose Check STAT Care 03/16/25 15:06 Active HEAD WITHOUT CONTRAST [CT] Stat Exams 03/16/25 15:06 Completed CBC W DIFF Stat Lab 03/16/25 15:00 Completed CMP Stat Lab 03/16/25 15:00 Completed MAGNESIUM Stat Lab 03/16/25 15:00 Completed POCT GLUCOSE Stat Lab 03/16/25 15:14 Completed TROPONIN Q4H Lab 03/16/25 15:00 Completed TROPONIN Q4H Lab 03/16/25 19:15 Ordered TROPONIN Q4H Lab 03/16/25 23:15 Ordered UA W/RFX UR CULTURE Stat Lab 03/16/25 16:49 Completed Lab/Rad Data: Laboratory Result Diagrams 03/16/25 15:00 03/16/25 15:00 Laboratory Results 03/16/25 03/16/25 03/16/25 Range/Units 16:49 15:14 15:00 WBC (4.23-9.07) x10^3/uL RBC (4.63-6.08) x10^6/uL Hgb (13.7-17.5) g/dL Hct (40.1-51.0) % MCV (79.0-92.2) fL MCH (25.7-32.2) pg MCHC (32.3-36.5) g/dL RDW (11.6-14.4) % Plt Count (163-337) x10^3/uL MPV (9.4-12.4) fL Gran % (34.0-67.9) % Immature Gran % (Auto) (0.001-0.429) % Nucleat RBC Rel Count (0.00-0.2) % Eos # (Auto) (0.04-0.54) x10^3/uL Immature Gran # (Auto) (0.001-0.031) x10^3u/L Absolute Lymphs (auto) (1.32-3.57) x10^3/uL Absolute Monos (auto) (0.30-0.82) x10^3/uL Absolute Nucleated RBC (0.00-0.012) x10^3u/L Lymphocytes % (21.8-53.1) % Monocytes % (5.3-12.2) % Eosinophils % (0.8-7.0) % Basophils % (0.2-1.2) % Absolute Granulocytes (1.78-5.38) x10^3/uL Basophils # (0.01-0.08) x10^3/uL Sodium (135-145) mmol/L Potassium (3.5-5.1) mmol/L Chloride (98-107) mmol/L Carbon Dioxide (22-30) mmol/L Anion Gap (5-15) MEQ/L BUN (9-20) mg/dL Creatinine (0.66-1.25) mg/dL Estimated GFR ML/MIN Glucose (74-106) mg/dL POC Glucometer 96 (74 to 106) mg/dL Calcium (8.4-10.2) mg/dL Magnesium (1.6-2.3) mg/dL Total Bilirubin (0.2-1.3) mg/dL AST (17-59) U/L ALT (0-50) U/L Alkaline Phosphatase (38-126) U/L Troponin I < 0.012 (0.000-0.033) ng/mL Serum Total Protein (6.3-8.2) g/dL Albumin (3.5-5.0) g/dL Urine Color Yellow (Yellow) Urine Appearance Clear (Clear) Urine pH 7.0 (4.6-8.0) Ur Specific [place] 1.010 (1.005-1.030) Urine Protein Negative (Negative) Urine Glucose (UA) Negative (Negative) mg/dL Urine Ketones Negative (Negative) Urine Blood Negative (Negative) Urine Nitrite Negative (Negative) Urine Bilirubin Negative (Negative) Urine Urobilinogen 0.2 (0.2) mg/dL Ur Leukocyte Esterase Negative (Negative) U Hyaline Cast (Auto) NONE SEEN (0-2) /LPF Urine Microscopic RBC 0-2 (0-5) /HPF Urine Microscopic WBC 0-2 (0-5) /HPF Ur Epithelial Cells None Seen (None Seen) /HPF Urine Bacteria None Seen (None Seen) /HPF Urine Culture Reflexed NO (NO) 03/16/25 03/16/25 Range/Units 15:00 15:00 WBC 8.6 (4.23-9.07) x10^3/uL RBC 4.61 L (4.63-6.08) x10^6/uL Hgb 14.0 (13.7-17.5) g/dL Hct 42.2 (40.1-51.0) % MCV 91.5 (79.0-92.2) fL MCH 30.4 (25.7-32.2) pg MCHC 33.2 (32.3-36.5) g/dL RDW 12.5 (11.6-14.4) % Plt Count 222 (163-337) x10^3/uL MPV 10.4 (9.4-12.4) fL Gran % 65.2 (34.0-67.9) % Immature Gran % (Auto) 0.1 (0.001-0.429) % Nucleat RBC Rel Count 0.0 (0.00-0.2) % Eos # (Auto) 0.19 (0.04-0.54) x10^3/uL Immature Gran # (Auto) 0.01 (0.001-0.031) x10^3u/L Absolute Lymphs (auto) 1.86 (1.32-3.57) x10^3/uL Absolute Monos (auto) 0.82 (0.30-0.82) x10^3/uL Absolute Nucleated RBC 0.00 (0.00-0.012) x10^3u/L Lymphocytes % 21.6 L (21.8-53.1) % Monocytes % 9.5 (5.3-12.2) % Eosinophils % 2.2 (0.8-7.0) % Basophils % 1.4 H (0.2-1.2) % Absolute Granulocytes 5.61 H (1.78-5.38) x10^3/uL Basophils # 0.12 H (0.01-0.08) x10^3/uL Sodium 138 (135-145) mmol/L Potassium 4.1 (3.5-5.1) mmol/L Chloride 106 (98-107) mmol/L Carbon Dioxide 23 (22-30) mmol/L Anion Gap 12.9 (5-15) MEQ/L BUN 15 (9-20) mg/dL Creatinine 1.23 (0.66-1.25) mg/dL Estimated GFR 64.0 ML/MIN Glucose 110 H (74-106) mg/dL POC Glucometer (74 to 106) mg/dL Calcium 9.6 (8.4-10.2) mg/dL Magnesium 2.1 (1.6-2.3) mg/dL Total Bilirubin 0.40 (0.2-1.3) mg/dL AST 32 (17-59) U/L ALT 27 (0-50) U/L Alkaline Phosphatase 57 (38-126) U/L Troponin I (0.000-0.033) ng/mL Serum Total Protein 7.4 (6.3-8.2) g/dL Albumin 4.5 (3.5-5.0) g/dL Urine Color (Yellow) Urine Appearance (Clear) Urine pH (4.6-8.0) Ur Specific [place] (1.005-1.030) Urine Protein (Negative) Urine Glucose (UA) (Negative) mg/dL Urine Ketones (Negative) Urine Blood (Negative) Urine Nitrite (Negative) Urine Bilirubin (Negative) Urine Urobilinogen (0.2) mg/dL Ur Leukocyte Esterase (Negative) U Hyaline Cast (Auto) (0-2) /LPF Urine Microscopic RBC (0-5) /HPF Urine Microscopic WBC (0-5) /HPF Ur Epithelial Cells (None Seen) /HPF Urine Bacteria (None Seen) /HPF Urine Culture Reflexed (NO) - Progress Progress: improved, re-examined Progress Note: 03/16/25 15:43 My medical decision making and the assignment of moderate complexity of this patient's medical issue today is based on review of the patient's past medical history, reviewed patient's medication list, reviewed patient drug allergy list, history of present illness and physical findings on examination. The worker in this patient includes CT scan of the head, IV line placement, twelve-lead EKG, troponin level, CBC, CMP, magnesium level, urinalysis. Differential diagnosis includes was not limited to hypotensive episode, vasovagal response, acute intracranial abnormality, anemia, electrolyte abnormalities, urinary tract infection, dehydration 03/16/25 17:31 I interpreted the patient's laboratory data results. Based on the laboratory data results there are no acute, emergent medical issues. CT scan of the head without contrast was interpreted by the radiologist and I reviewed the impression. The impression states nonacute senile brain 03/16/25 17:31 Counseled pt/family regarding: lab results, diagnosis, need for follow-up (Does not The impression states nonacute senile brain.), rad results Medical Desision Making - Independent Historian Additional History obtained from: Spouse - Diagnostic Testing Diagnostic test were ordered, analyzed, and reviewed by me: Yes Radiological Interpretation: Reviewed by me, Teleradiologist Report - Risk of complications Low Risk: Low risk of morbidity from additional dx testing or treatment - Departure Departure Disposition: Home Clinical Impression: Dizziness Condition: Stable Critical Care Time: No Referrals: PAM BILLINGS NP [Primary Care Provider, [facility]] - Follow up/PCP as directed Additional Instructions: Call all of the physicians who are caring for you and managing your blood pressure tomorrow, 03/17/2025, to make arrangements for follow up appointment. Choose 1 physician that you would like to manage your blood pressure but inform all of the physicians what that management is.
[2025-03-16 14:24] VITALS: TEMP 97.2
[2025-03-16 15:16] LABS: BASOPHIL % 1.4 % (0.2-1.2); Basophil (Absolute #) 0.12 x10^3/uL (0.01-0.08); Eosinophil (Absolute #) 0.19 x10^3/uL (0.04-0.54); Hematocrit 42.2 % (40.1-51.0); Hemoglobin 14.0 g/dL (13.7-17.5); IMMATURE GRAN # 0.01 x10^3u/L (0.001-0.031); IMMATURE GRAN % 0.1 % (0.001-0.429); Lymphocyte (Absolute #) 1.86 x10^3/uL (1.32-3.57); Mean Corpuscular Hemoglobin 30.4 pg (25.7-32.2); Mean Corpuscular Hgb Concent. 33.2 g/dL (32.3-36.5); Monocyte (Absolute #) 0.82 x10^3/uL (0.30-0.82); NUCLEATED RBC # 0.00 x10^3u/L (0.00-0.012); NUCLEATED RBC % 0.0 % (0.00-0.2); Platelet Count 222 x10^3/uL (163-337); Red Blood Count 4.61 x10^6/uL (4.63-6.08); White Blood Count 8.6 x10^3/uL (4.23-9.07)
[2025-03-16 15:20] LABS: Calcium 9.6 mg/dL (8.4-10.2); Carbon Dioxide 23.0 mmol/L (22-30); Creatinine 1 1.23 mg/dL (0.66-1.25); EST GLOMERULAR FILTRATION RATE 64.0 ML/MIN; Glucose 110.0 mg/dL (74-106); Potassium 4.1 mmol/L (3.5-5.1); SGOT/AST 32.0 U/L (17-59); SGPT/ALT 27.0 U/L (0-50); Total Protein 7.4 g/dL (6.3-8.2)
--- NOTE | 2025-03-16 16:44 | XRAY ---
Indication: Dizziness. Multiple contiguous axial images obtained through the head without contrast. Comparison: March 05, 2013 There is now age-appropriate global atrophy and minimal periventricular degenerative micro-ischemia bilaterally. No acute intracranial hemorrhage, abnormal extra-axial fluid collection, or mass effect. Fourth ventricle is midline without hydrocephalus. Bony calvarium intact. Visualized paranasal sinuses and mastoid air cells are clear. Impression: Nonacute senile brain.
[2025-03-16 17:22] LABS: Glucose, Urine Negative (Negative); Protein,Urine Dip Negative (Negative); RBC 0-2 /HPF (0-5); WBC 0-2 /HPF (0-5)
[2025-03-16 17:36] VITALS: BP 135/74; PULSE 78; RESP 18; O2SAT 99
== END 2025-03-16 18:09 | disposition home or self-care (01) ==
LOC: ED 14:04
DX: R42 Dizziness and giddiness (principal); I10 Essential (primary) hypertension; E11.42 Type 2 diabetes mellitus with diabetic polyneuropathy; Z79.84 Long term (current) use of oral hypoglycemic drugs; Z79.899 Other long term (current) drug therapy